=== PATIENT | female | born 1980 | race Caucasian/White ===

== ENCOUNTER 2016-11-07 11:05 | Emergency (ER) | payer OTHER ==
[2016-11-07 11:19] VITALS: BP 120/71
--- NOTE | 2016-11-07 11:58 | UC ---
Head Injury HPI - HPI Summary HPI Summary: 1 week ago hit her head was bending over beneath a monkey bar stood up and hit vtx no swelling or bleeding brief WINN that lasted minutes The next day went hiking Had her child on back later developed moderate neck pain with marked decreased ROM neck has improved but still feels tight has 3-4/10 occipital WINN which while being annoying has not keep her from doing any ADLs no n/v no trouble thinking/focusing no trouble with balance - History Of Current Complaint Chief Complaint: UCHeadInjury Stated Complaint: HEAD INJURY HEADACHE Time Seen by Provider: 11/07/16 11:30 Hx Obtained From: Patient Hx Last Menstrual Period: 10/24/16 Onset/Duration: Sudden Onset, Lasting Minutes Severity Currently: Mild Severity Initially: Moderate Pain Intensity: 4 Pain Scale Used: 0-10 Numeric Character: Dull Aggravating Factor(s): Nothing Alleviating Factor(s): Nothing Associated Signs And Symptoms: Positive: Neck Pain. Negative: LOC (Time In Secs./Mins/Hrs), LOC Duration Unknown, Confusion, Memory Loss, Epistaxis, Dental Malocclusion, Nausea, Vomiting - Allergies/Home Medications Allergies/Adverse Reactions: Allergies Allergy/AdvReac Type Severity Reaction Status Date / Time Sulfa Antibiotics Allergy Intermediate Hives Verified 11/07/16 11:19 Home Medications: Home Medications NK [No Home Medications Reported] 11/07/16 [History Confirmed 11/07/16] PMH/Surg Hx/FS Hx/Imm Hx Previously Healthy: Yes - Surgical History Surgical History: None - Family History Known Family History: Negative: Cardiac Disease, Hypertension, Diabetes - Social History Alcohol Use: Daily Alcohol Amount: 1-2 glasses per day Substance Use Type: None Smoking Status (MU): Former Smoker - Immunization History Most Recent Influenza Vaccination: unk Most Recent Tetanus Shot: 09/20/10 Most Recent Pneumonia Vaccination: na Review of Systems Constitutional: Negative Skin: Negative Eyes: Negative ENT: Negative Respiratory: Negative Cardiovascular: Negative Gastrointestinal: Negative Genitourinary: Negative Motor: Negative Neurovascular: Negative Musculoskeletal: Myalgia Neurological: Headache Psychological: Negative All Other Systems Reviewed And Are Negative: Yes Physical Exam Triage Information Reviewed: Yes Appearance: Well-Appearing, No Pain Distress, Well-Nourished Vital Signs: Initial Vital Signs Temp 98.5 F 09/06/17 11:14 Pulse 78 11/07/16 11:14 Resp 16 11/07/16 11:14 BP 120/71 11/07/16 11:14 Pulse Ox 99 11/07/16 11:14 Vital Signs Reviewed: Yes Eyes: Positive: Conjunctiva Clear, Other: - eomi/perrl/fundi-benign ENT: Positive: Hearing grossly normal, TMs normal. Negative: Pharyngeal erythema, Nasal congestion, Nasal drainage, Tonsillar exudate, Trismus, Muffled/ hoarse voice Neck: Positive: Supple, Tenderness @ - bilateral trapezius muscles Respiratory: Positive: Lungs clear, Normal breath sounds, No respiratory distress, No accessory muscle use Cardiovascular: Positive: RRR, No Murmur Musculoskeletal: Positive: ROM Intact, No Edema Neurological: Positive: Alert, Muscle Tone Normal, Other: - GCS 15/15, cn 2-12 intact, brisk symmetrical reflexes, normal gait,(-) [place] Psychological Exam: Normal Skin Exam: Normal Head Injury Course/Dx - Differential Dx/Diagnosis Provider Diagnoses: scalp contusion. cervical strain Discharge - Discharge Plan Condition: Stable Disposition: HOME Patient Education Materials: Cervical Strain (ED), General Headache (ED) Referrals: No Primary Care Phys,NOPCP [Primary Care Provider] - Additional Instructions: aleve 1-2 twice daily with food if needed for pain recheck for new or worsening symptoms recheck in one week if not better
== END 2016-11-07 11:55 | disposition home or self-care (01) ==
LOC: UCEAST 11:05
DX: S00.03XA Contusion of scalp, initial encounter (principal); S13.9XXA Sprain of joints and ligaments of unspecified parts of neck, initial encounter; W22.8XXA Striking against or struck by other objects, initial encounter; Y92.9 Unspecified place or not applicable; Z88.2 Allergy status to sulfonamides; Z87.891 Personal history of nicotine dependence
CPT/HCPCS: 99211; G0463

== ENCOUNTER 2017-03-28 09:04 | Emergency (ER) | payer OTHER ==
[2017-03-28 09:30] VITALS: BP 118/70
--- NOTE | 2017-03-28 10:04 | UC ---
Lower Extremity/Ankle HPI - HPI Summary HPI Summary: Pt presents with right second toe pain after dropping a glass container onto it yesterday morning. She is having redness, swelling, and some bleeding around the toenail. Able to ambulate with mild pain. Has been rinsing and soaking the toe since it happened. - History of Current Complaint Chief Complaint: UCLowerExtremity Stated Complaint: TOE INJURY Time Seen by Provider: 03/28/17 10:03 Hx Obtained From: Patient Hx Last Menstrual Period: 1month ago Onset/Duration: Sudden Onset Severity Initially: Mild Severity Currently: Mild Pain Intensity: 3 Pain Scale Used: 0-10 Numeric Aggravating Factor(s): Standing, Ambulation Alleviating Factor(s): Rest, Elevation Able to Bear Weight: Yes - Allergies/Home Medications Allergies/Adverse Reactions: Allergies Allergy/AdvReac Type Severity Reaction Status Date / Time Sulfa Antibiotics Allergy Intermediate Hives Verified 03/28/17 09:29 PMH/Surg Hx/FS Hx/Imm Hx Previously Healthy: Yes - Surgical History Surgical History: None Surgery Procedure, Year, and Place: tubal ligation. csection x2 - Family History Known Family History: Negative: Cardiac Disease, Hypertension, Diabetes - Social History Lives: With Family Alcohol Use: Daily Alcohol Amount: 1-2 glasses per day Substance Use Type: None Smoking Status (MU): Former Smoker - Immunization History Most Recent Influenza Vaccination: unk Most Recent Tetanus Shot: 09/20/10 Most Recent Pneumonia Vaccination: na Review of Systems Constitutional: Negative Skin: Negative Respiratory: Negative Cardiovascular: Negative Neurovascular: Negative Musculoskeletal: Other: - Right second toe pain Neurological: Negative Psychological: Negative All Other Systems Reviewed And Are Negative: Yes Physical Exam Triage Information Reviewed: Yes Appearance: Well-Appearing, No Pain Distress, Well-Nourished Vital Signs: Initial Vital Signs Temp 98.5 F 03/28/17 09:22 Pulse 84 03/28/17 09:22 Resp 18 03/28/17 09:22 BP 118/70 03/28/17 09:22 Pulse Ox 100 03/28/17 09:22 Vital Signs Reviewed: Yes Respiratory: Positive: Lungs clear, Normal breath sounds, No respiratory distress Cardiovascular: Positive: RRR, No Murmur, Pulses Normal, Brisk Capillary Refill - Right second toe Musculoskeletal: Positive: Strength Intact - Right second toe, ROM Intact - Right second toe, No Edema - Right second toe, Other: - TTP tip of Right second toe. Neurological: Positive: Alert, Other: - Sensations intact right foot and all toes Psychological: Positive: Age Appropriate Behavior Skin: Positive: Other - Nail is partially avulsed at the distal lateral side. Cuticle is loose, but attached. Mild oozing blood around the sides of the nail. No subungual hematoma. Lower Extremity Course/Dx - Course Course Of Treatment: Toe XR: IMPRESSION: SOFT TISSUE SWELLING, NO FRACTURE IS SEEN. - Differential Dx/Diagnosis Provider Diagnoses: Right second toe contusion. Right second toe nail avulsion Discharge - Discharge Plan Condition: Stable Disposition: HOME Patient Education Materials: Nail Avulsion (ED), Crush Injury (ED) Referrals: Kamini Guillory NP [Primary Care Provider] - Additional Instructions: If you develop a fever, shortness of breath, chest pain, new or worsening symptoms - please call your PCP or go to the ED.
--- NOTE | 2017-03-28 10:34 | RAD ---
INDICATION: Right second toe injury. TECHNIQUE: 3 views of the right second toe were obtained. FINDINGS: There is soft tissue swelling present in the second toe. The bones are normal alignment. No fracture is seen. IMPRESSION: SOFT TISSUE SWELLING, NO FRACTURE IS SEEN.
== END 2017-03-28 11:07 | disposition home or self-care (01) ==
LOC: UCEAST 09:04
DX: S90.121A Contusion of right lesser toe(s) without damage to nail, initial encounter (principal); S91.209A Unspecified open wound of unspecified toe(s) with damage to nail, initial encounter; Z87.891 Personal history of nicotine dependence; W20.8XXA Other cause of strike by thrown, projected or falling object, initial encounter; Y92.9 Unspecified place or not applicable
CPT/HCPCS: 99211; G0463